=== PATIENT | female | born 1980 | race Caucasian/White ===

== ENCOUNTER 2017-09-21 20:09 | Emergency (ER) | payer MEDICAID ==
[~2017-09-21] VITALS: Ht 157.5 cm; Wt 57.0 kg
[~2017-09-21 20:09] MED LIST: METH4TAB81 PO
[2017-09-21] MEDS ORDERED: ipratropium/albuterol 3ml nebule NEB ONE (21:35)
[2017-09-21] MEDS ORDERED: albuterol 2.5 MG/3 ML nebule CONTNEB PRN (21:35)
[2017-09-21] MEDS ORDERED: predniSONE 20 mg tablet PO ONE (21:35)
[2017-09-21] MEDS ORDERED: UMEC1DIS INH (22:33)
[2017-09-21] MEDS ORDERED: ALBU8HFA PO (22:33)
[2017-09-21] MEDS ORDERED: PRED50TA PO (22:33)
[2017-09-21 22:38] VITALS: BP 130/98
== END 2017-09-21 22:39 | disposition home or self-care (01) ==
LOC: ER 20:10
DX: J44.1 Chronic obstructive pulmonary disease with (acute) exacerbation (principal); Z87.891 Personal history of nicotine dependence
CPT/HCPCS: 94640; 94760; 99283; J7512